=== PATIENT | female | born 1970 | race Hispanic/Latino ===

== ENCOUNTER 2018-05-30 21:00 | Emergency (ER) | payer OTHER ==
[~2018-05-30] VITALS: Ht 157.5 cm; Wt 66.8 kg
[2018-05-30] MEDS ORDERED: diphenhydrAMINE INJ 50MG/ML VIAL (J1200) IV ONE (22:15)
[2018-05-30] MEDS ORDERED: methylPREDNISolone INJ 125 MG/2 ML VIAL (J2930) IV ONE (22:15)
[2018-05-30] MEDS ORDERED: ALBUTEROL SULFATE 2.5 MG/0.5 ML INH NEB SOLN NEB ONE (22:15)
[2018-05-30 23:36] LABS: INFLUENZA A AMPLIFICATION NEGATIVE (NEGATIVE); INFLUENZA B AMPLIFICATION NEGATIVE (NEGATIVE)
[2018-05-31] MEDS ORDERED: VENTAER INH (00:12)
[2018-05-31] MEDS ORDERED: CETI10TA PO (00:12)
[2018-05-31 00:20] VITALS: BP 114/67
--- NOTE | 2018-05-31 07:26 | REP ---
Clinical: Dyspnea and cough . Comparison: None . Technique: PA and lateral. Findings: The mediastinum and cardiac silhouette are normal. The lung rai are clear and without acute consolidation, effusion, or pneumothorax. The skeletal structures are intact and normal. Impression: 1. No acute cardiopulmonary process. Electronically Signed by Haider Wheeler MD 05/31/2018 07:18 A
== END 2018-05-31 00:25 | disposition home or self-care (01) ==
LOC: M ED 21:00
DX: J45.901 Unspecified asthma with (acute) exacerbation (principal); J30.81 Allergic rhinitis due to animal (cat) (dog) hair and dander; Z88.0 Allergy status to penicillin
CPT/HCPCS: 71046; 87502; 96374; 96375; 99284; J1200; J2930